=== PATIENT | female | born 1975 | race Caucasian/White ===

== ENCOUNTER 2018-05-28 21:47 | Emergency (ER) | payer BC ==
[~2018-05-28 21:47] MED LIST: NO CURRENT MEDS
[2018-05-28 21:48] VITALS: BP 159/103
--- NOTE | 2018-05-28 21:50 | ER Report ---
History and Physical Time Seen By MD: 21:50 HPI/ROS CHIEF COMPLAINT: Fall, forehead laceration HISTORY OF PRESENT ILLNESS: 42-year-old female presents ambulatory to the ER with a friend. She apparently slipped and fell on ice striking her face. She has a laceration to her right upper forehead. Patient denies LOC, neck pain, headache or vomiting. She thinks her tetanus shot is greater than 10 years. REVIEW OF SYSTEMS: Respiratory: No cough, no dyspnea. Cardiovascular: No chest pain, no palpitations. Gastrointestinal: No vomiting, no abdominal pain. Musculoskeletal: No back pain. Allergies: Coded Allergies: Penicillins (Unverified Allergy, Mild, 05/28/18) Sulfa (Sulfonamide Antibiotics) (Unverified Allergy, Mild, 05/28/18) Home Meds Reported Medications Albuterol Sulfate (PROVENTIL HFA) 6.7 Gm Inh, 1-2 PUFF INH 3-4XD, INH 05/28/18 Discontinued Reported Medications [No Current Meds] No Conflict Check 04/23/07 Reviewed Nurses Notes: Yes Old Medical Records Reviewed: Yes Constitutional Vital Sign - Last 24 Hours 05/28/18 05/28/18 05/28/18 21:48 22:02 22:17 Temp 97.9 Pulse 89 78 78 Resp 14 B/P (MAP) 159/103 Pulse Ox 99 96 93 O2 Delivery Room Air Physical Exam Vital signs stable, afebrile, pulse ox normal General Appearance: The patient is alert, has no immediate need for airway protection and no current signs of toxicity. Palpation of the head and neck reveal no tenderness or trauma. There are some superficial abrasions to her face. There is a small laceration approximately 1.4 cm long in the right upper forehead region. HEENT: Pupils equal and round no injection. TMs normal, oropharynx without dental trauma, facial bones intact on palpation Respiratory: Chest is non tender, lungs are clear to auscultation. No chest wall tenderness Cardiac: regular rate and rhythm Gastrointestinal: Abdomen is soft and non tender, no masses, bowel sounds normal. Musculoskeletal: Neck: Neck is supple and non tender. No tenderness with aggressive palpation of the midline Extremities have full range of motion and are non tender. Skin: No rashes or lesions. DIFFERENTIAL DIAGNOSIS: After history and physical exam differential diagnosis was considered for head injury including but not limited to concussion, skull fracture, intraparenchymal contusion, subarachnoid, subdural and epidural hematoma. Additionally, forehead laceration, facial abrasions, facial contusion Medical Decision Making ED Course/Re-evaluation ED Course Patient was admitted to an examination room. H&P was done. The differential diagnoses was considered. On clinical examination. Patient has superficial facial abrasions and a tiny laceration to the right upper outer forehead. Patient imaged alcohol ingestion. 3-4 glasses of wine. Palpation of her head and neck reveal no serious trauma. Patient's laceration was repaired as noted below. Her tetanus status was updated. Patient advised to have her stitches removed in 5 days. Wound care was discussed. Procedure: Laceration repair. Verbal consent was obtained from the patient. The 1.4 cm laceration on the right upper outer forehead was anesthetized in the usual fashion. The wound was scrubbed, draped and explored to its base with a gloved finger. There were no deep structures involved. The wound was repaired with 5-0 Prolene 2 sutures. The wound repair was simple. The procedure was performed by myself. Decision to Disposition Date: May 28, 2018 Decision to Disposition Time: 21:58 Depart Departure Latest Vital Signs Vital Signs Date Time Temp Pulse Resp B/P (MAP) Pulse Ox O2 Delivery O2 Flow Rate FiO2 05/28/18 22:17 78 93 05/28/18 21:48 97.9 14 159/103 Room Air Impression: Primary Impression: Facial laceration Additional Impressions: Facial contusion Head injury Alcohol intoxication Condition: Improved Disposition: HOME OR SELF-CARE Patient Instructions: Facial Laceration (ED), Head Injury (ED) Additional Instructions: Perform daily wound care Have your stitches removed in 5 days Problem Qualifiers Primary Impression: Facial laceration Encounter type: initial encounter Qualified Codes: S01.81XA - Laceration without foreign body of other part of head, initial encounter Additional Impressions: Facial contusion Encounter type: initial encounter Qualified Codes: S00.83XA - Contusion of other part of head, initial encounter Head injury Encounter type: initial encounter Qualified Codes: S09.90XA - Unspecified injury of head, initial encounter Alcohol intoxication Complication of substance-induced condition: uncomplicated Qualified Codes: F10.920 - Alcohol use, unspecified with intoxication, uncomplicated KAELA STEWARD DO May 28, 2018 21:50
[2018-05-28] MEDS ORDERED: ALB6.7R INH (21:54)
[2018-05-28] MEDS: DIPHTH/TETANUS/ACEL. PERTUSSIS IM ONLY ONE (21:55)
== END 2018-05-28 22:27 | disposition home or self-care (01) ==
LOC: ER 22:27
DX: S01.81XA Laceration without foreign body of other part of head, initial encounter (principal); S00.83XA Contusion of other part of head, initial encounter; S09.90XA Unspecified injury of head, initial encounter; F10.920 Alcohol use, unspecified with intoxication, uncomplicated; W00.0XXA Fall on same level due to ice and snow, initial encounter
CPT/HCPCS: 90471; 90715; 99283